=== PATIENT | female | born 1945 | race Caucasian/White ===

== ENCOUNTER 2020-09-23 15:54 | Inpatient (IN) | payer MEDICARE ==
[2020-09-23] MEDS ORDERED: HEPARIN SODIUM 1,000 UN/ML (10ML VL) IV PRN (16:20)
--- NOTE | 2020-09-23 16:22 | ED ---
General Adult HPI - General Chief complaint: Extremity Problem,Nontraumatic Stated complaint: DVT, Vascular Consult Time Seen by Provider: 09/23/20 15:57 Source: patient, EMS Mode of arrival: EMS Limitations: no limitations - History of Present Illness Initial comments: Dictation was produced using [employer] English dictation software. please excuse any gramm atical, word or spelling errors. Chief Complaint: 75-year-old female transferred from [facility] emergency Department for left lower richard of any DVT History of Present Illness: 5-year-old female she has no history of PE or DVTs. Over the last 4 days she developed worsening left lower extremity pain and swelling. She received an ultrasound and CT angios of the chest at [facility]. She was negative for pulmonary embolus however did have extensive DVT formation in the left lower extremity. As a constitutional symptoms. Denies any dysuria. No shortness of breath, no abdominal pain. The ROS documented in this emergency department record has been reviewed and confirmed by me. Those systems with pertinent positive or negative responses have been documented in the HPI. All other systems are other negative and/or noncontributory. PHYSICAL EXAM: General Impression: Alert and oriented x3, not in acute distress HEENT: Normocephalic atraumatic, extra-ocular movements intact, pupils equal and reactive to light bilaterally, mucous membranes moist. Cardiovascular: Heart regular rate and rhythm Chest: Able to complete full sentences, no retractions, no tachypnea Abdomen: abdomen soft, non-tender, non-distended, no organomegaly Musculoskeletal: Pulses present and equal in all extremities, no peripheral edema Motor: no focal deficits noted, swollen left extremity Neurological: CN II-XII grossly intact, no focal motor or sensory deficits noted Skin: Intact with no visualized rashes Psych: Normal affect and mood ED course: 75-year-old female presents with extensive DVT formation with fluctuating. She was evaluated for PE and CT angios the chest was negative. Vital signs upon arrival shows temperature 101.9. Rest of vital signs within acceptable limits. Patient does not have any localizing symptoms to explain patient's pyrexia. Blood cultures and urine studies were obtained. Repeat labs ordered. His examination is benign. Patient is well-appearing at the bedside showing no significant changes. Patient to be admitted with consultation to vascular surgery. - Related Data Allergies Allergy/AdvReac Type Severity Reaction Status Date / Time No Known Allergies Allergy Verified 09/23/20 16:34 Review of Systems ROS Statement: Those systems with pertinent positive or pertinent negative responses have been documented in the HPI. ROS Other: All systems not noted in ROS Statement are negative. Past Medical History Past Medical History: Hypertension History of Any Multi-Drug Resistant Organisms: None Reported Past Surgical History: Orthopedic Surgery, Tubal Ligation Past Psychological History: No Psychological Hx Reported Smoking Status: Former smoker Past Alcohol Use History: None Reported Past Drug Use History: None Reported General Exam Limitations: no limitations Course Vital Signs 09/23/20 15:56 Temperature 101.9 F H Pulse Rate 86 Respiratory 18 Rate Blood Pressure 146/68 O2 Sat by Pulse 100 Oximetry Medical Decision Making - Lab Data Result diagrams: 09/23/20 16:31 09/23/20 16:31 Lab Results 09/23/20 09/23/20 09/23/20 Range/Units 16:31 16:31 16:31 WBC 15.4 H (3.8-10.6) k/uL RBC 4.07 (3.80-5.40) m/uL Hgb 13.0 (11.4-16.0) gm/dL Hct 37.6 (34.0-46.0) % MCV 92.4 (80.0-100.0) fL MCH 32.1 (25.0-35.0) pg MCHC 34.7 (31.0-37.0) g/dL RDW 13.4 (11.5-15.5) % Plt Count 185 (150-450) k/uL MPV 7.9 Neutrophils % 77 % Lymphocytes % 13 % Monocytes % 8 % Eosinophils % 1 % Basophils % 0 % Neutrophils # 11.9 H (1.3-7.7) k/uL Lymphocytes # 2.0 (1.0-4.8) k/uL Monocytes # 1.2 H (0-1.0) k/uL Eosinophils # 0.1 (0-0.7) k/uL Basophils # 0.1 (0-0.2) k/uL Sodium 138 (137-145) mmol/L Potassium 4.0 (3.5-5.1) mmol/L Chloride 101 (98-107) mmol/L Carbon Dioxide 27 (22-30) mmol/L Anion Gap 10 mmol/L BUN 20 H (7-17) mg/dL Creatinine 0.52 (0.52-1.04) mg/dL Est GFR (CKD-EPI)AfAm >90 (>60 ml/min/1.73 sqM) Est GFR (CKD-EPI)NonAf >90 (>60 ml/min/1.73 sqM) Glucose 125 H (74-99) mg/dL Plasma Lactic Acid Tru (0.7-2.0) mmol/L Calcium 9.4 (8.4-10.2) mg/dL Urine Color Yellow Urine Appearance Clear (Clear) Urine pH 6.5 (5.0-8.0) Ur Specific [place] >1.050 H (1.001-1.035) Urine Protein 1+ H (Negative) Urine Glucose (UA) Negative (Negative) Urine Ketones Negative (Negative) Urine Blood Moderate H (Negative) Urine Nitrite Negative (Negative) Urine Bilirubin Negative (Negative) Urine Urobilinogen 4.0 (<2.0) mg/dL Ur Leukocyte Esterase Negative (Negative) Urine RBC 17 H (0-5) /hpf Urine WBC 3 (0-5) /hpf Ur Squamous Epith Cells 4 (0-4) /hpf Urine Bacteria Rare H (None) /hpf Urine Mucus Rare H (None) /hpf 09/23/20 Range/Units 16:31 WBC (3.8-10.6) k/uL RBC (3.80-5.40) m/uL Hgb (11.4-16.0) gm/dL Hct (34.0-46.0) % MCV (80.0-100.0) fL MCH (25.0-35.0) pg MCHC (31.0-37.0) g/dL RDW (11.5-15.5) % Plt Count (150-450) k/uL MPV Neutrophils % % Lymphocytes % % Monocytes % % Eosinophils % % Basophils % % Neutrophils # (1.3-7.7) k/uL Lymphocytes # (1.0-4.8) k/uL Monocytes # (0-1.0) k/uL Eosinophils # (0-0.7) k/uL Basophils # (0-0.2) k/uL Sodium (137-145) mmol/L Potassium (3.5-5.1) mmol/L Chloride (98-107) mmol/L Carbon Dioxide (22-30) mmol/L Anion Gap mmol/L BUN (7-17) mg/dL Creatinine (0.52-1.04) mg/dL Est GFR (CKD-EPI)AfAm (>60 ml/min/1.73 sqM) Est GFR (CKD-EPI)NonAf (>60 ml/min/1.73 sqM) Glucose (74-99) mg/dL Plasma Lactic Acid Tru 1.0 (0.7-2.0) mmol/L Calcium (8.4-10.2) mg/dL Urine Color Urine Appearance (Clear) Urine pH (5.0-8.0) Ur Specific [place] (1.001-1.035) Urine Protein (Negative) Urine Glucose (UA) (Negative) Urine Ketones (Negative) Urine Blood (Negative) Urine Nitrite (Negative) Urine Bilirubin (Negative) Urine Urobilinogen (<2.0) mg/dL Ur Leukocyte Esterase (Negative) Urine RBC (0-5) /hpf Urine WBC (0-5) /hpf Ur Squamous Epith Cells (0-4) /hpf Urine Bacteria (None) /hpf Urine Mucus (None) /hpf Critical Care Time Critical Care Time: Yes Total Critical Care Time: 33 Disposition Clinical Impression: Deep vein thrombosis (DVT) of upper extremity Disposition: ADMITTED IP TO THIS HOSP Condition: Fair Referrals: Salinas Laboy MD [Primary Care Provider] - 1-2 days
[2020-09-23] MEDS: HEPARIN SOD,PORK IN 0.45% NACL 25,000 UNIT in 0.45% NACL 1 250ML.BAG IV SCH (16:40)
[2020-09-23 16:52] LABS: Basophils # (A) 0.1 k/uL (0-0.2); Basophils % (A) 0 %; Eosinophils # (A) 0.1 k/uL (0-0.7); Eosinophils % (A) 1 %; HCT 37.6 % (34.0-46.0); Lymphocytes % (A) 13 %; MCH 32.1 pg (25.0-35.0); MCHC 34.7 g/dL (31.0-37.0); MCV 92.4 fL (80.0-100.0); Mean Platelet Volume 7.9; Monocytes # (A) 1.2 k/uL (0-1.0); Monocytes % (A) 8 %; Neutrophils # (A) 11.9 k/uL (1.3-7.7); Neutrophils % (A) 77 %; Platelet Count 185 k/uL (150-450); RBC 4.07 m/uL (3.80-5.40); RDW 13.4 % (11.5-15.5); WBC 15.4 k/uL (3.8-10.6)
[2020-09-23 17:00] LABS: Appearance,Urine Clear (Clear); Bacteria,Urine Rare /hpf; Bilirubin,Urine Negative (Negative); Blood,Urine Moderate (Negative); Color,Urine Yellow; Glucose,Urine (UA) Negative (Negative); Ketones,Urine Negative (Negative); Leukocyte Esterase,Urine Negative (Negative); Mucus,Urine Rare /hpf; Nitrite,Urine Negative (Negative); PH, Urine 6.5 (5.0-8.0); Protein,Urine 1+ (Negative); RBC,Urine 17 /hpf (0-5); Squamous Epithelial Cell,Urine 4 /hpf (0-4); WBC,Urine 3 /hpf (0-5)
[2020-09-23 17:01] LABS: Specific Gravity,Urine >1.050 (1.001-1.035)
[2020-09-23 17:15] LABS: African American GFR (CKD) >90 (>60 ml/min/1.73 sqM); Anion Gap 10 mmol/L; Blood Urea Nitrogen 20 mg/dL (7-17); Calcium 9.4 mg/dL (8.4-10.2); Carbon Dioxide 27 mmol/L (22-30); Chloride 101 mmol/L (98-107); Glucose 125 mg/dL (74-99); Non-African American GFR(CKD) >90 (>60 ml/min/1.73 sqM); Sodium 138 mmol/L (137-145)
[2020-09-23] MEDS ORDERED: NALOXONE 0.4 MG/ML 1 ML VIAL IV PRN (17:39)
[2020-09-23] MEDS ORDERED: ACETAMINOPHEN TAB 325 MG TAB PO PRN (17:39)
[2020-09-23] MEDS ORDERED: SODIUM CHLORIDE 0.9% 1,000 ML IV SCH (17:45)
[2020-09-23 17:47] LABS: Prothrombin Time 10.8 sec (9.0-12.0)
[2020-09-23 18:17] LABS: Partial Thromboplastin Time 121.2 sec (22.0-30.0)
--- NOTE | 2020-09-23 21:15 | P.HPIM ---
History of Present Illness H&P Date: 09/23/20 The patient is a 75-year-old female with a PMH of hypertension who was sent in to the emergency room as a transfer from [facility] where she presented earlier today with left lower extremity swelling. Patient reports that her symptoms started 4-5 days ago, where she initially noticed left groin pain. She initially did not think much of it and the pain gradually worsened along with worsening swelling and pain of the left lower extremity. She also then had occasional chills at home. The patient denied recent travel or prolonged immobilization. She denied a history of blood clots. Denied using any hormonal therapy. Denied falls or trauma. She denied numbness or tingling of the left leg. Denied headache. Also denied chest pain, shortness of breath, palpitations. Denied urinary complaints. Denied nausea, vomiting, abdominal pain, diarrhea. She underwent an extensive evaluation at [facility] which was all reviewed. Lower extremity venous Doppler revealed evidence of a severe DVT of the entire left leg from posterior tibial to the common femoral vein. CT angiogram of the chest revealed no evidence of pulmonary embolism. Laboratory evaluation revealed a hemoglobin of 12.2, platelets 176, WBC count 13.7, d-dimer 17.4, INR 1.0, PT 10.1, PTT 23.9, sodium 136, potassium 3.9, chloride 102, glucose 138, BUN 36.8, creatinine 0.6, troponin I less than 0.05, and BNP 28. The patient was started on heparin infusion and was transferred for further management including vascular surgery consult. At time of interview, the patient reports that she only has mild left lower extremity pain if she tries to move the leg but has no pain at rest. Review of systems: Pertinent positives and negatives as discussed in HPI, a complete review of systems was performed and all other systems are negative. Physical examination: General: non toxic, no distress, appears at stated age, normal weight Derm: no unusual rashes/lesions no unusual ecchymoses, warm, dry Head: atraumatic, normocephalic, symmetric Eyes: EOMI, no lid lag, anicteric sclera, pupils equal round reactive to light ENT: Nose and ears atraumatic, no thrush, no pharyngeal erythema Neck: No thyromegaly, no cervical lymphadenopathy, trachea midline, supple Mouth: no lip lesion, mucus membranes moist Cardiovascular: S1S2 reg, no murmur, positive posterior tibial pulse bilateral, capillary refill less than 2 seconds Lungs: CTA bilateral, no rhonchi, no rales , no accessory muscle use Abdominal: soft, nontender to palpation, no guarding, no appreciable organomegaly, normal bowel sounds Ext: no gross muscle atrophy, left lower extremity swelling extending to the left hip, warmth and tenderness of the left leg noted with minimal erythema, muscle strength 5 out of 5 in all extremities except left lower extremity due to pain, distal left lower extremity strength 5 out of 5, no contractures Neuro: CN II-XI grossly intact, light touch intact all 4 extremities, finger to nose within normal limits, Psych: Alert, oriented, appropriate affect Assessment/plan Severe left lower extremity DVT -Continue with heparin infusion -Vascular surgery consulted Pyrexia, no clear infectious etiology noted -May be due to significant clot burden -Follow up blood cultures -UA and chest x-ray not consistent with infection Prerenal azotemia -Gentle IV hydration -Monitor BMP DVT prophylaxis -Heparin infusion The patient is admitted with an anticipated less than 2 midnight stay for evaluation of DVT CODE STATUS: Full Code Discussed with: Patient Anticipated discharge date: in am Anticipated discharge place: Home A total of 40 minutes was spent on the care of this complex patient more than 50% of the time was spent in counseling and care coordination. Past Medical History Past Medical History: Hypertension History of Any Multi-Drug Resistant Organisms: None Reported Past Surgical History: Orthopedic Surgery, Tubal Ligation Past Psychological History: No Psychological Hx Reported Smoking Status: Former smoker Past Alcohol Use History: None Reported Past Drug Use History: None Reported Medications and Allergies Home Medications Medication Instructions Recorded Confirmed Type Ascorbic Acid [Vitamin C] 1,000 mg PO DAILY 09/23/20 09/23/20 History Cholecalciferol (Vitamin D3) 125 mcg PO DAILY 09/23/20 09/23/20 History [Vitamin D3 (5000 Iu)] Cyanocobalamin [Vitamin B-12] 500 mcg PO DAILY 09/23/20 09/23/20 History Diltiazem HCl [Diltiazem HCl 24Hr 240 mg PO DAILY 09/23/20 09/23/20 History ER ([place])] Vitamin A 2,400 mcg PO DAILY 09/23/20 09/23/20 History Allergies Allergy/AdvReac Type Severity Reaction Status Date / Time No Known Allergies Allergy Verified 09/23/20 18:23 Physical Exam Vitals: Vital Signs Temp Pulse Pulse Resp BP BP Pulse Ox 09/23/20 19:25 99.5 F 80 20 126/74 96 09/23/20 18:19 100.1 F H 104/58 09/23/20 18:14 86 18 98 09/23/20 15:56 101.9 F H 86 18 146/68 100 Intake and Output 09/23/20 09/23/20 09/23/20 06:59 14:59 22:59 Intake Total 25.701 Balance 25.701 Intake: Intake, IV Titration 25.701 Amount Heparin Sod,Pork in 0.45% 25.701 NaCl 25,000 unit In 0.45 % NaCl 1 250ml.bag @ 18 UNITS/KG/HR 15.268 mls/hr IV [id number] Rx#: [id number] Other: Weight 84.822 kg Results CBC & Chem 7: 09/23/20 16:31 09/23/20 16:31 Labs: Abnormal Lab Results - Last 24 Hours (Table) 09/23/20 09/23/20 09/23/20 Range/Units 16:31 16:31 16:31 WBC 15.4 H (3.8-10.6) k/uL Neutrophils # 11.9 H (1.3-7.7) k/uL Monocytes # 1.2 H (0-1.0) k/uL APTT (22.0-30.0) sec BUN 20 H (7-17) mg/dL Glucose 125 H (74-99) mg/dL Ur Specific [place] >1.050 H (1.001-1.035) Urine Protein 1+ H (Negative) Urine Blood Moderate H (Negative) Urine RBC 17 H (0-5) /hpf Urine Bacteria Rare H (None) /hpf Urine Mucus Rare H (None) /hpf 09/23/20 Range/Units 17:30 WBC (3.8-10.6) k/uL Neutrophils # (1.3-7.7) k/uL Monocytes # (0-1.0) k/uL APTT 121.2 H* (22.0-30.0) sec BUN (7-17) mg/dL Glucose (74-99) mg/dL Ur Specific [place] (1.001-1.035) Urine Protein (Negative) Urine Blood (Negative) Urine RBC (0-5) /hpf Urine Bacteria (None) /hpf Urine Mucus (None) /hpf
[2020-09-24] MEDS: DILTIAZEM CD 240 MG CAP.ER.24H PO SCH (08:18)
--- NOTE | 2020-09-24 13:09 | P.GSCN ---
History of Present Illness Consult date: 09/24/20 Reason for Consult: Left lower extremity DVT Requesting physician: Rashi Romero History of present illness: This is a 75-year-old white female with a past medical history of hypertension who presented to her [facility] hospital with complaints of left lower extremity pain and swelling. States that she started with pain in her groin for 5 days ago and then it progressively got worse and went down her left leg. She also noted swelling, no redness. She denies any previous history of DVT, pulmonary embolism, denies any clotting disorders no injury to her left lower extremity, no recent surgery, no recent traveling. Outside report was dictated by the ER physician showing evidence of deep vein thrombosis present, severe DVT noted entire left leg from posterior tibial to common femoral vein. She also underwent a CT angiogram of the chest which showed no evidence of pulmonary embolism. She is complaining that she still has pain down her left lower extremity. She denies any shortness of breath, chest pain, abdominal pain, nausea, vomiting, or fever. Review of Systems A 14 point review of systems was completed all pertinent positives and negatives as stated in the HPI Past Medical History Past Medical History: Hypertension History of Any Multi-Drug Resistant Organisms: None Reported Past Surgical History: Orthopedic Surgery, Tubal Ligation Past Psychological History: No Psychological Hx Reported Smoking Status: Former smoker Past Alcohol Use History: None Reported Past Drug Use History: None Reported Medications and Allergies Home Medications Medication Instructions Recorded Confirmed Type Ascorbic Acid [Vitamin C] 1,000 mg PO DAILY 09/23/20 09/23/20 History Cholecalciferol (Vitamin D3) 125 mcg PO DAILY 09/23/20 09/23/20 History [Vitamin D3 (5000 Iu)] Cyanocobalamin [Vitamin B-12] 500 mcg PO DAILY 09/23/20 09/23/20 History Diltiazem HCl [Diltiazem HCl 24Hr 240 mg PO DAILY 09/23/20 09/23/20 History ER ([place])] Vitamin A 2,400 mcg PO DAILY 09/23/20 09/23/20 History Allergies Allergy/AdvReac Type Severity Reaction Status Date / Time No Known Allergies Allergy Verified 09/23/20 18:23 Surgical - Exam Vital Signs Temp Pulse Resp BP Pulse Ox 101.9 F H 86 18 146/68 100 09/23/20 15:56 09/23/20 15:56 09/23/20 15:56 09/23/20 15:56 09/23/20 15:56 General appearance: The patient is alert, oriented, in no acute distress. Obese. HET: Head is normocephalic and atraumatic. Neck: Supple without lymphadenopathy. Trachea midline. Heart: S1 S2. Regular rate and rhythm. Lungs: Clear to auscultation. Abdomen: Soft, nontender, nondistended. Extremities: Normal skin color and turgor. Lower extremity with edema from thigh down to her foot. No redness noted. She does have some tenderness with palpation of her thigh and calf. She has bilateral palpable femoral and dorsalis pedis pulses. Neurological: No focal deficits. Alert and oriented 3. Results - Labs 09/23/20 16:31 09/23/20 16:31 Abnormal Lab Results - Last 24 Hours (Table) 09/23/20 09/23/20 09/23/20 Range/Units 16:31 16:31 16:31 WBC 15.4 H (3.8-10.6) k/uL Neutrophils # 11.9 H (1.3-7.7) k/uL Monocytes # 1.2 H (0-1.0) k/uL APTT (22.0-30.0) sec BUN 20 H (7-17) mg/dL Glucose 125 H (74-99) mg/dL Ur Specific [place] >1.050 H (1.001-1.035) Urine Protein 1+ H (Negative) Urine Blood Moderate H (Negative) Urine RBC 17 H (0-5) /hpf Urine Bacteria Rare H (None) /hpf Urine Mucus Rare H (None) /hpf 09/23/20 09/24/20 Range/Units 17:30 02:52 WBC (3.8-10.6) k/uL Neutrophils # (1.3-7.7) k/uL Monocytes # (0-1.0) k/uL APTT 121.2 H* 120.7 H* (22.0-30.0) sec BUN (7-17) mg/dL Glucose (74-99) mg/dL Ur Specific [place] (1.001-1.035) Urine Protein (Negative) Urine Blood (Negative) Urine RBC (0-5) /hpf Urine Bacteria (None) /hpf Urine Mucus (None) /hpf Diabetes panel 09/23/20 Range/Units 16:31 Sodium 138 (137-145) mmol/L Potassium 4.0 (3.5-5.1) mmol/L Chloride 101 (98-107) mmol/L Carbon Dioxide 27 (22-30) mmol/L BUN 20 H (7-17) mg/dL Creatinine 0.52 (0.52-1.04) mg/dL Glucose 125 H (74-99) mg/dL Calcium 9.4 (8.4-10.2) mg/dL Calcium panel 09/23/20 Range/Units 16:31 Calcium 9.4 (8.4-10.2) mg/dL Pituitary panel 09/23/20 Range/Units 16:31 Sodium 138 (137-145) mmol/L Potassium 4.0 (3.5-5.1) mmol/L Chloride 101 (98-107) mmol/L Carbon Dioxide 27 (22-30) mmol/L BUN 20 H (7-17) mg/dL Creatinine 0.52 (0.52-1.04) mg/dL Glucose 125 H (74-99) mg/dL Calcium 9.4 (8.4-10.2) mg/dL Adrenal panel 09/23/20 Range/Units 16:31 Sodium 138 (137-145) mmol/L Potassium 4.0 (3.5-5.1) mmol/L Chloride 101 (98-107) mmol/L Carbon Dioxide 27 (22-30) mmol/L BUN 20 H (7-17) mg/dL Creatinine 0.52 (0.52-1.04) mg/dL Glucose 125 H (74-99) mg/dL Calcium 9.4 (8.4-10.2) mg/dL - Imaging Comments: Doppler ultrasound from [facility] reports evidence of deep vein thrombosis present severe DVT noted entire left leg from posterior tibial to the common femoral vein. Assessment and Plan Assessment: 1. Left lower extremity DVT 2. History of hypertension Plan: 1. Continue heparin drip 2. Nothing by mouth 3. Will schedule patient for a left femoral venogram with possible thrombolysis 4. Further recommendations to follow 5. Please get actual report of left lower extremity venous Doppler study from [facility] Thank you for this consultation allowing us to take part in the plan of care of your patient during her hospital stay The impression and plan of care has been dictated as directed. Dr. Pandya I performed a history and examination of this patient, discussed the same with the dictator. I agree with the dictator's note ,documented as a scribe. Any additional findings or plans will be noted.
[2020-09-24] MEDS ORDERED: HEPARIN SODIUM 1,000 UN/ML (10ML VL) ONE (13:28)
[2020-09-24] MEDS ORDERED: LIDOCAINE 1% INJ 10MG/ML (20 ML MDV) ONE (13:28)
[2020-09-24] MEDS ORDERED: LIDOCAINE 1% INJ 10MG/ML (20 ML MDV) SQ ONE (13:37)
--- NOTE | 2020-09-24 13:44 | P.PN ---
Subjective Progress Note Date: 09/24/20 Patient was seen and evaluated this morning. She did not have any concerns. She denies any pain in her left lower extremity. Left lower extremity is significantly swollen compared to the right. Objective - Vital Signs Vital signs: Vital Signs Temp 98.2 F 09/24/20 11:44 Pulse 86 09/24/20 11:44 Resp 16 09/24/20 11:44 BP 135/79 09/24/20 11:44 Pulse Ox 97 09/24/20 11:44 Intake & Output 09/23/20 09/24/20 09/24/20 18:59 06:59 18:59 Intake Total 25.701 114.199 97.331 Output Total 100 Balance 25.701 14.199 97.331 Weight 84.822 kg Intake: Intake, IV Titration 25.701 114.199 97.331 Amount Heparin Sod,Pork in 0.45% 25.701 114.199 97.331 NaCl 25,000 unit In 0.45 % NaCl 1 250ml.bag @ 18 UNITS/KG/HR 15.268 mls/hr IV .[id number] [facility] Rx#: [id number] Oral 0 Output: Urine 100 Other: Voiding Method Bedside Commode # Voids 5 - Exam General: The patient is awake and alert, in no distress Eye: there is normal conjunctiva bilaterally. Neck: The neck is supple, there is no JVD. Cardiovascular: Normal S1-S2, no S3-S4, no murmurs. Respiratory: Lungs clear to auscultation bilaterally Gastrointestinal: Abdomen is soft, nontender Musculoskeletal: There is no pedal edema. Neurological:. Speech is normal. Skin: Skin is warm and dry - Labs CBC & Chem 7: 09/23/20 16:31 09/23/20 16:31 Labs: Abnormal Lab Results - Last 24 Hours (Table) 09/23/20 09/23/20 09/23/20 Range/Units 16:31 16:31 16:31 WBC 15.4 H (3.8-10.6) k/uL Neutrophils # 11.9 H (1.3-7.7) k/uL Monocytes # 1.2 H (0-1.0) k/uL APTT (22.0-30.0) sec BUN 20 H (7-17) mg/dL Glucose 125 H (74-99) mg/dL Ur Specific [place] >1.050 H (1.001-1.035) Urine Protein 1+ H (Negative) Urine Blood Moderate H (Negative) Urine RBC 17 H (0-5) /hpf Urine Bacteria Rare H (None) /hpf Urine Mucus Rare H (None) /hpf 09/23/20 09/24/20 09/24/20 Range/Units 17:30 02:52 11:43 WBC (3.8-10.6) k/uL Neutrophils # (1.3-7.7) k/uL Monocytes # (0-1.0) k/uL APTT 121.2 H* 120.7 H* 60.8 H (22.0-30.0) sec BUN (7-17) mg/dL Glucose (74-99) mg/dL Ur Specific [place] (1.001-1.035) Urine Protein (Negative) Urine Blood (Negative) Urine RBC (0-5) /hpf Urine Bacteria (None) /hpf Urine Mucus (None) /hpf Assessment and Plan Assessment: This is a 75-year-old female with past medical history noted below who presented to an outside emergency room with worsening left lower extremity pain and swelling. Patient was evaluated and transferred to our hospital for further management of her medical problems noted below. 1. Extensive DVT involving the left lower extremity, started on IV heparin drip. Patient was seen and evaluated by vascular surgery. Plan for possible femoral venogram with thrombolysis this afternoon. 2. Essential hypertension, blood pressure within acceptable range Today, I reviewed her medication list and lab work results. CT angiogram of the chest done at outside hospital showed no evidence of pulmonary embolism. We will continue supportive care otherwise. He Works in the morning. PT/OT evaluation.
[2020-09-24] MEDS ORDERED: ALTEPLASE BOLUS 1 MG/1 ML SYRINGE IV STA (14:06)
[2020-09-24] MEDS ORDERED: ALTEPLASE 10 MG in SODIUM CHLORIDE 0.9% 100 ML IV ONE (14:15)
[2020-09-24] MEDS ORDERED: IOPAMIDOL-250 100ML BTL IV ONE (14:15)
--- NOTE | 2020-09-24 15:25 | P.CNPUL ---
History of Present Illness Consult date: 09/24/20 Requesting physician: Bharti Gaona Reason for consult: DVT Chief complaint: A left lower extremity swelling and pain History of present illness: This is a 75-year-old female, known history of hypertension, nonsmoker, no previous history of DVT or pulmonary embolism, no previous history of ma lignancy. Patient is current on cancer screening including mammography and colon cancer screening/colonoscopy. Patient presented to the ER in [place] with 5 days history of progressive swelling and pain in the left lower extremity. Denies any history of trauma to the leg. Denies any recent surgery. No recent travel. Ultrasound of the leg showed deep vein thromboses. There was evidence of severe DVT involving the entire left leg from the posterior tibial [address] angiogram of the chest showed no evidence of pulmonary embolism. Patient was transferred to our ER, seen by vascular surgery on consultation, patient was maintained on heparin, underwent left femoral venogram with thrombolysis, using EKOS. Postoperatively, patient was sent to the ICU, and I was asked to see her on consultation. Patient denies any specific complaints at present, she is in no distress. No cough no wheezing no shortness of breath and no chest pain. Review of Systems Constitutional: Negative HEENT: Negative. Pulmonary: Negative. Cardiac: Negative. GI: Negative. Genitourinary: Negative Muscular skeletal: As noted in HPI. Skin: Negative. Hematologic: No previous history of DVT or pulmonary embolism Psychiatric: Negative Endocrine: Negative Neurologic: Negative Past Medical History Past Medical History: Hypertension History of Any Multi-Drug Resistant Organisms: None Reported Past Surgical History: Orthopedic Surgery, Tubal Ligation Past Psychological History: No Psychological Hx Reported Smoking Status: Former smoker Past Alcohol Use History: None Reported Past Drug Use History: None Reported Medications and Allergies Home Medications Medication Instructions Recorded Confirmed Type Ascorbic Acid [Vitamin C] 1,000 mg PO DAILY 09/23/20 09/23/20 History Cholecalciferol (Vitamin D3) 125 mcg PO DAILY 09/23/20 09/23/20 History [Vitamin D3 (5000 Iu)] Cyanocobalamin [Vitamin B-12] 500 mcg PO DAILY 09/23/20 09/23/20 History Diltiazem HCl [Diltiazem HCl 24Hr 240 mg PO DAILY 09/23/20 09/23/20 History ER ([place])] Vitamin A 2,400 mcg PO DAILY 09/23/20 09/23/20 History Allergies Allergy/AdvReac Type Severity Reaction Status Date / Time No Known Allergies Allergy Verified 09/23/20 18:23 Physical Exam Vitals: Vital Signs Temp Pulse Pulse Resp BP BP BP 09/24/20 11:44 98.2 F 86 16 135/79 09/24/20 04:35 98.9 F 83 20 165/71 09/23/20 19:25 99.5 F 80 20 126/74 09/23/20 18:19 100.1 F H 104/58 09/23/20 18:14 86 18 09/23/20 15:56 101.9 F H 86 18 146/68 Pulse Ox 09/24/20 11:44 97 09/24/20 04:35 100 09/23/20 19:25 96 09/23/20 18:19 09/23/20 18:14 98 09/23/20 15:56 100 Intake and Output 09/24/20 09/24/20 09/24/20 06:59 14:59 22:59 Intake Total 114.199 97.331 Balance 114.199 97.331 Intake: Intake, IV Titration 114.199 97.331 Amount Heparin Sod,Pork in 0.45% 114.199 97.331 NaCl 25,000 unit In 0.45 % NaCl 1 250ml.bag @ 18 UNITS/KG/HR 15.268 mls/hr IV .[id number] [facility] Rx#: [id number] Oral 0 Other: Voiding Method Bedside Commode # Voids 5 Physical Exam: Revealed 75-year-old female very pleasant in no distress, on room air. Head: Atraumatic, normocephalic. HEENT:[Neck is supple.] [No neck masses.] [No thyromegaly.] [No JVD.] PERRLA, EOMI, nonicteric, Chest: [Clear throughout, no crackles, no rhonchi, no wheezes.] Symmetrical chest expansion. Cardiac Exam: [Normal S1 and S2, no S3 gallop, no murmur.] Abdomen: [Soft, nontender, no megaly, no rebound, no guarding, normal bowel sounds.] Extremities: Left Lower extremity with edema from thigh down to her foot. No redness noted. She does have some tenderness with palpation of her thigh and calf. She has bilateral palpable femoral and dorsalis pedis pulses. Neurological Exam: [No focal neurologic deficit.] Alert oriented 3. Psychiatric: Normal mood affect and normal mental status examination. Skin: No rashes. Musculoskeletal no deformities noted limitation range of motion Results - Laboratory Findings CBC and BMP: 09/23/20 16:31 09/23/20 16:31 PT/INR, D-dimer PT 10.8 sec (9.0-12.0) 09/23/20 17:30 INR 1.0 (<1.2) 09/23/20 17:30 Abnormal lab findings: Abnormal Labs 09/23/20 09/23/20 09/23/20 16:31 16:31 16:31 WBC 15.4 H Neutrophils # 11.9 H Monocytes # 1.2 H APTT BUN 20 H Glucose 125 H Ur Specific [place] >1.050 H Urine Protein 1+ H Urine Blood Moderate H Urine RBC 17 H Urine Bacteria Rare H Urine Mucus Rare H 09/23/20 09/24/20 09/24/20 17:30 02:52 11:43 WBC Neutrophils # Monocytes # APTT 121.2 H* 120.7 H* 60.8 H BUN Glucose Ur Specific [place] Urine Protein Urine Blood Urine RBC Urine Bacteria Urine Mucus Assessment and Plan Assessment: Impression: Acute extensive DVT of the left lower extremity, unprovoked. History of hypertension. Status post left femoral venogram with thrombolysis. History of coVID 19 infection back in June of 2020. Recommendation: Continue present supportive care measures. Continue heparin and TPA. Resume home meds. Consider CT of the abdomen and pelvis, rule out underlying abdominal malignancy. Continue to monitor in the ICU for the next 24 hours Transition to oral anticoagulation therapy in the next 24 hours. We'll continue to follow. Time with Patient: Greater than 30
[2020-09-24] MEDS: HEPARIN SOD,PORK IN 0.45% NACL 25,000 UNIT in 0.45% NACL 1 250ML.BAG IV SCH (18:57)
[2020-09-24] MEDS: SODIUM CHLORIDE 0.9% 1,000 ML IV SCH (18:58)
[2020-09-25 03:59] LABS: Basophils # (A) 0.1 k/uL (0-0.2); Basophils % (A) 0 %; Eosinophils % (A) 0 %; HCT 36.6 % (34.0-46.0); HGB 12.2 gm/dL (11.4-16.0); Lymphocytes # (A) 1.7 k/uL (1.0-4.8); Lymphocytes % (A) 12 %; MCH 31.2 pg (25.0-35.0); MCHC 33.4 g/dL (31.0-37.0); MCV 93.2 fL (80.0-100.0); Mean Platelet Volume 8.4; Monocytes % (A) 7 %; Neutrophils % (A) 79 %; Platelet Count 178 k/uL (150-450); RBC 3.93 m/uL (3.80-5.40); RDW 13.4 % (11.5-15.5); WBC 13.9 k/uL (3.8-10.6)
[2020-09-25 04:21] LABS: African American GFR (CKD) >90 (>60 ml/min/1.73 sqM); Anion Gap 9 mmol/L; Blood Urea Nitrogen 12 mg/dL (7-17); Calcium 8.6 mg/dL (8.4-10.2); Carbon Dioxide 23 mmol/L (22-30); Chloride 105 mmol/L (98-107); Glucose 101 mg/dL (74-99); Non-African American GFR(CKD) >90 (>60 ml/min/1.73 sqM); Sodium 137 mmol/L (137-145)
[2020-09-25] MEDS ORDERED: SODIUM CHLORIDE 0.9% 500 ML 500 ML IV SCH (05:15)
[2020-09-25] MEDS: SODIUM CHLORIDE 0.9% 1,000 ML IV SCH (06:23)
[2020-09-25] MEDS: DILTIAZEM CD 240 MG CAP.ER.24H PO SCH (08:28)
--- NOTE | 2020-09-25 08:48 | IR ---
EXAMINATION TYPE: IR transcath embolizat therapy DATE OF EXAM: 09/24/2020 CLINICAL HISTORY: Left leg thrombosis TECHNIQUE: Fluoroscopy. COMPARISON: None. FINDINGS: Fluoroscopic guidance was provided during procedure. A total of 3.1 minutes of fluoroscop ic time was utilized during the procedure and 401 total images acquired. IMPRESSION: As Above.
--- NOTE | 2020-09-25 08:56 | P.PN ---
Subjective Progress Note Date: 09/25/20 Principal diagnosis: Left lower extremity DVT The patient is seen and examined lying in bed in the ICU. Yesterday she underwent left lower extremity venogram with thromboliasis. She is currently on heparin and TPA. She denies any shortness of breath, chest pain, abdominal andrews n, nausea or vomiting. She's been afebrile. She states she is doing well and had no acute changes through the night. No significant pain in the left lower extremity. Objective - Vital Signs Vital signs: Vital Signs Temp 100.7 F H 09/25/20 04:00 Pulse 73 09/25/20 07:00 Resp 19 09/25/20 08:00 BP 122/50 09/25/20 07:00 Pulse Ox 94 L 09/25/20 07:00 Intake & Output 09/24/20 09/25/20 09/25/20 18:59 06:59 18:59 Intake Total 985.725 0941 105 Output Total 75 Balance 489.906 5557 105 Weight 91.6 kg Intake: IV 280 910 70 Sodium Chloride 0.9% 1, 280 910 70 000 ml @ 70 mls/hr IV . [id number] [facility] Rx#:[id number] Intake, IV Titration 110.100 205 35 Amount Alteplase 10 mg In Sodium 135 Chloride 0.9% 100 ml @ 1 MG/HR 10 mls/hr IV .Q10H [facility] Rx#:[id number] Heparin Sod,Pork in 0.45% 110.100 NaCl 25,000 unit In 0.45 % NaCl 1 250ml.bag @ 5 mls/hr IV .Q24H [facility] Rx#: [id number] Sodium Chloride 0.9% 500 70 35 ml 500 ml @ 35 mls/hr IV .[id number] [facility] Rx#: [id number] Oral 0 Tube Feeding 0 0 Blood Product 0 Output: Urine 75 Other: Voiding Method Bedside Commode Bedside Commode Bedside Commode # Voids 1 1 - Exam General appearance: The patient is alert, oriented, appears in no acute distress . HET: Head is normocephalic and atraumatic. Neck: Supple without lymphadenopathy. Trachea midline. Heart: S1 S2. Regular rate and rhythm. Lungs: Clear to auscultation. Abdomen: Soft, nontender, nondistended. Extremities: Normal skin color and turgor. Left lower extremity with Job wrap around knee. Palpable femoral and dorsalis pedis pulses. Neurological: No focal deficits. Alert and oriented 3. - Labs CBC & Chem 7: 09/25/20 03:13 09/25/20 03:13 Labs: Abnormal Lab Results - Last 24 Hours (Table) 09/24/20 09/24/20 09/25/20 Range/Units 11:43 21:35 03:13 WBC 13.9 H (3.8-10.6) k/uL Neutrophils # 11.0 H (1.3-7.7) k/uL APTT 60.8 H (22.0-30.0) sec Fibrinogen 763 H (200-500) mg/dL Creatinine (0.52-1.04) mg/dL Glucose (74-99) mg/dL 09/25/20 09/25/20 Range/Units 03:13 03:13 WBC (3.8-10.6) k/uL Neutrophils # (1.3-7.7) k/uL APTT (22.0-30.0) sec Fibrinogen 679 H (200-500) mg/dL Creatinine 0.48 L (0.52-1.04) mg/dL Glucose 101 H (74-99) mg/dL Microbiology - Last 24 Hours (Table) 09/23/20 21:25 Blood Culture - Preliminary Blood No Growth after 24 hours Assessment and Plan Assessment: 1. Dense of left lower extremity DVT 2. Patient is status post left lower extremity venogram and thrombolysis 3. History of hypertension Plan: 1. Discontinue TPA and Heparin 2. Start Eliquis 10mg BID, script sent to pharmacy to check for coverage 3. Catheter discontinued, please pull sheath 4. May ambulate after two hours 5. Regular diet 6. Patient may be transferred to medical floor Thank you for this consultation, we will continue to follow The impression and plan of care has been dictated as directed. I performed a history and examination of this patient, discussed the same with the dictator. I agree with the dictator's note ,documented as a scribe. Any additional findings or plans will be noted.
--- NOTE | 2020-09-25 12:15 | P.PN ---
Subjective Progress Note Date: 09/25/20 Principal diagnosis: Acute left lower extremity deep vein thrombosis This is a 75-year-old female, known history of hypertension, nonsmoker, no previous history of DVT or pulmonary embolism, no previous history of malignancy. Patient is current on cancer screening including mammography and colon cancer screening/colonoscopy. Patient presented to the ER in [place] with 5 days history of progressive swelling and pain in the left lower extremity. Denies any history of trauma to the leg. Denies any recent surgery. No recent travel. Ultrasound of the leg showed deep vein thromboses. There was evidence of severe DVT involving the entire left leg from the posterior tibi al [address] angiogram of the chest showed no evidence of pulmonary embolism. Patient was transferred to our ER, seen by vascular surgery on consultation, patient was maintained on heparin, underwent left femoral venogram with thrombolysis, using EKOS. Postoperatively, patient was sent to the ICU, and I was asked to see her on consultation. Patient denies any specific complaints at present, she is in no distress. No cough no wheezing no shortness of breath and no chest pain. Reevaluated today on 09/25/2020, patient had left lower extremity venogram and thrombolysis yesterday. Presently on heparin, denies any shortness of breath, no issues overnight, overall the patient is doing great, and I believe the patient could be transitioned possibly today to oral anticoagulations therapy either Eliquis on Xarelto. WBC count is 15.9 hemoglobin is 12.2 PTT is 25.4, fibrinogen is 711 electrolytes are normal renal profile is normal Objective - Vital Signs Vital signs: Vital Signs Temp 97.9 F 09/25/20 08:00 Pulse 93 09/25/20 12:00 Resp 17 09/25/20 12:00 BP 150/95 09/25/20 12:00 Pulse Ox 97 09/25/20 12:00 Intake & Output 09/24/20 09/25/20 09/25/20 18:59 06:59 18:59 Intake Total 382.347 9247 605 Output Total 75 600 Balance 153.935 6864 5 Weight 91.6 kg Intake: IV 280 910 420 Sodium Chloride 0.9% 1, 280 910 420 000 ml @ 70 mls/hr IV . [id number] [facility] Rx#:[id number] Intake, IV Titration 110.100 205 35 Amount Alteplase 10 mg In Sodium 135 Chloride 0.9% 100 ml @ 1 MG/HR 10 mls/hr IV .Q10H [facility] Rx#:[id number] Heparin Sod,Pork in 0.45% 110.100 NaCl 25,000 unit In 0.45 % NaCl 1 250ml.bag @ 5 mls/hr IV .Q24H [facility] Rx#: [id number] Sodium Chloride 0.9% 500 70 35 ml 500 ml @ 35 mls/hr IV .[id number] [facility] Rx#: [id number] Oral 0 150 Tube Feeding 0 0 Blood Product 0 Output: Urine 75 600 Other: Voiding Method Bedside Commode Bedside Commode Bedside Commode # Voids 1 1 - Exam Physical Exam: Revealed 75-year-old female very pleasant in no distress, on room air. Head: Atraumatic, normocephalic. HEENT:[Neck is supple.] [No neck masses.] [No thyromegaly.] [No JVD.] PERRLA, EOMI, nonicteric, Chest: [Clear throughout, no crackles, no rhonchi, no wheezes.] Symmetrical chest expansion. Cardiac Exam: [Normal S1 and S2, no S3 gallop, no murmur.] Abdomen: [Soft, nontender, no megaly, no rebound, no guarding, normal bowel sounds.] Extremities: Left Lower extremity is wrapped with Job wraps, pulses are palpable. Neurological Exam: [No focal neurologic deficit.] Alert oriented 3. Psychiatric: Normal mood affect and normal mental status examination. Skin: No rashes. Musculoskeletal no deformities noted limitation range of motion - Labs CBC & Chem 7: 09/25/20 03:13 09/25/20 03:13 Labs: Abnormal Lab Results - Last 24 Hours (Table) 09/24/20 09/24/20 09/25/20 Range/Units 11:43 21:35 03:13 WBC 13.9 H (3.8-10.6) k/uL Neutrophils # 11.0 H (1.3-7.7) k/uL APTT 60.8 H (22.0-30.0) sec Fibrinogen 763 H (200-500) mg/dL Creatinine (0.52-1.04) mg/dL Glucose (74-99) mg/dL 09/25/20 09/25/20 09/25/20 Range/Units 03:13 03:13 08:32 WBC (3.8-10.6) k/uL Neutrophils # (1.3-7.7) k/uL APTT (22.0-30.0) sec Fibrinogen 679 H 711 H (200-500) mg/dL Creatinine 0.48 L (0.52-1.04) mg/dL Glucose 101 H (74-99) mg/dL Microbiology - Last 24 Hours (Table) 09/23/20 21:25 Blood Culture - Preliminary Blood No Growth after 24 hours Assessment and Plan Assessment: Impression: Acute extensive DVT of the left lower extremity, unprovoked. History of hypertension. Status post left femoral venogram with thrombolysis. History of coVID 19 infection back in June of 2020. Recommendation: Continue present supportive care measures. Transition to Eliquis. Resume home meds. Consider CT of the abdomen and pelvis, rule out underlying abdominal malignancy. Transfer to a regular medical floor. And consider discharge planning in the ne xt 24 hours. We'll continue to follow. Time with Patient: Less than 30
[2020-09-25] MEDS: APIXABAN 5 MG TAB PO SCH ×2 (12:28→20:00)
--- NOTE | 2020-09-25 13:19 | P.PN ---
Subjective Progress Note Date: 09/25/20 Patient is doing fairly well today. She is laying flat in bed. She is currently getting TPA and IV heparin. She does not have any complaint this morning. No acute events overnight reported by nursing staff. Objective - Vital Signs Vital signs: Vital Signs Temp 97.9 F 09/25/20 08:00 Pulse 93 09/25/20 12:00 Resp 17 09/25/20 12:00 BP 150/95 09/25/20 12:00 Pulse Ox 97 09/25/20 12:00 Intake & Output 09/24/20 09/25/20 09/25/20 18:59 06:59 18:59 Intake Total 108.743 2208 605 Output Total 75 600 Balance 683.585 7310 5 Weight 91.6 kg Intake: IV 280 910 420 Sodium Chloride 0.9% 1, 280 910 420 000 ml @ 70 mls/hr IV . [id number] [facility] Rx#:[id number] Intake, IV Titration 110.100 205 35 Amount Alteplase 10 mg In Sodium 135 Chloride 0.9% 100 ml @ 1 MG/HR 10 mls/hr IV .Q10H [facility] Rx#:[id number] Heparin Sod,Pork in 0.45% 110.100 NaCl 25,000 unit In 0.45 % NaCl 1 250ml.bag @ 5 mls/hr IV .Q24H [facility] Rx#: [id number] Sodium Chloride 0.9% 500 70 35 ml 500 ml @ 35 mls/hr IV .[id number] [facility] Rx#: [id number] Oral 0 150 Tube Feeding 0 0 Blood Product 0 Output: Urine 75 600 Other: Voiding Method Bedside Commode Bedside Commode Bedside Commode # Voids 1 1 - Exam General: The patient is awake and alert, in no distress Eye: there is normal conjunctiva bilaterally. Neck: The neck is supple, there is no JVD. Cardiovascular: Normal S1-S2, no S3-S4, no murmurs. Respiratory: Lungs clear to auscultation bilaterally Gastrointestinal: Abdomen is soft, nontender Musculoskeletal: There is no pedal edema. Left leg significantly swollen compared to the right Neurological:. Speech is normal. Skin: Skin is warm and dry - Labs CBC & Chem 7: 09/25/20 03:13 09/25/20 03:13 Labs: Abnormal Lab Results - Last 24 Hours (Table) 09/24/20 09/25/20 09/25/20 Range/Units 21:35 03:13 03:13 WBC 13.9 H (3.8-10.6) k/uL Neutrophils # 11.0 H (1.3-7.7) k/uL Fibrinogen 763 H (200-500) mg/dL Creatinine 0.48 L (0.52-1.04) mg/dL Glucose 101 H (74-99) mg/dL 09/25/20 09/25/20 Range/Units 03:13 08:32 WBC (3.8-10.6) k/uL Neutrophils # (1.3-7.7) k/uL Fibrinogen 679 H 711 H (200-500) mg/dL Creatinine (0.52-1.04) mg/dL Glucose (74-99) mg/dL Microbiology - Last 24 Hours (Table) 09/23/20 21:25 Blood Culture - Preliminary Blood No Growth after 24 hours Assessment and Plan Assessment: This is a 75-year-old female with past medical history noted below who presented to an outside emergency room with worsening left lower extremity pain and swelling. Patient was evaluated and transferred to our hospital for further management of her medical problems noted below. 1. Extensive DVT involving the left lower extremity, started on IV heparin drip. Patient was seen and evaluated by vascular surgery. She underwent left lower extremity venogram with thrombolysis. Postoperative care per vascular surgery. 2. Essential hypertension, blood pressure within acceptable range Today, I reviewed her medication list and lab work results. Mild leukocytosis is probably reactive. CT angiogram of the chest done at outside hospital showed no evidence of pulmonary embolism. We will continue supportive care otherwise. He Works in the morning. PT/OT evaluation.
[2020-09-25] MEDS: HEPARIN SOD,PORK IN 0.45% NACL 25,000 UNIT in 0.45% NACL 1 250ML.BAG IV SCH (21:35)
[2020-09-26 03:39] VITALS: TEMP 98.5
[2020-09-26 08:08] LABS: Basophils % (A) 0 %; Eosinophils % (A) 0 %; HCT 36.7 % (34.0-46.0); HGB 11.9 gm/dL (11.4-16.0); Lymphocytes % (A) 18 %; MCH 30.4 pg (25.0-35.0); MCHC 32.4 g/dL (31.0-37.0); MCV 93.7 fL (80.0-100.0); Mean Platelet Volume 7.7; Monocytes # (A) 0.6 k/uL (0-1.0); Monocytes % (A) 5 %; Neutrophils # (A) 8.2 k/uL (1.3-7.7); Neutrophils % (A) 74 %; Platelet Count 215 k/uL (150-450); RBC 3.91 m/uL (3.80-5.40); RDW 13.9 % (11.5-15.5); WBC 11.1 k/uL (3.8-10.6)
[2020-09-26 08:17] LABS: African American GFR (CKD) >90 (>60 ml/min/1.73 sqM); Anion Gap 5 mmol/L; Blood Urea Nitrogen 14 mg/dL (7-17); Calcium 8.7 mg/dL (8.4-10.2); Carbon Dioxide 27 mmol/L (22-30); Chloride 105 mmol/L (98-107); Glucose 98 mg/dL (74-99); Non-African American GFR(CKD) >90 (>60 ml/min/1.73 sqM); Potassium 4.1 mmol/L (3.5-5.1); Sodium 137 mmol/L (137-145)
[2020-09-26] MEDS: DILTIAZEM CD 240 MG CAP.ER.24H PO SCH (09:32)
[2020-09-26] MEDS: APIXABAN 5 MG TAB PO SCH (09:32)
[2020-09-26 10:54] VITALS: BP 125/77; PULSE 89; RESP 16
--- NOTE | 2020-09-26 13:05 | P.PN ---
Subjective Progress Note Date: 09/26/20 Principal diagnosis: Acute left lower extremity DVT This is a 75-year-old female, known history of hypertension, nonsmoker, no previous history of DVT or pulmonary embolism, no previous history of malignancy. Patient is current on cancer screening including mammography and colon cancer screening/colonoscopy. Patient presented to the ER in [place] with 5 days history of progressive swelling and pain in the left lower extremity. Denies any history of trauma to the leg. Denies any recent surgery. No recent travel. Ultrasound of the leg showed deep vein thromboses. There was evidence of severe DVT involving the entire left leg from the posterior tibial [address] angiogram of the chest showed no evidence of pulmonary embolism. Patient was transferred to our ER, seen by vascular surgery on consultation, patient was maintained on heparin, underwent left femoral venogram with thrombolysis, using EKOS. Postoperatively, patient was sent to the ICU, and I was asked to see her on consultation. Patient denies any specific complaints at present, she is in no distress. No cough no wheezing no shortness of breath and no chest pain. Reevaluated today on 09/25/2020, patient had left lower extremity venogram and thrombolysis yesterday. Presently on heparin, denies any shortness of breath, no issues overnight, overall the patient is doing great, and I believe the patient could be transitioned possibly today to oral anticoagulations therapy either Eliquis on Xarelto. WBC count is 15.9 hemoglobin is 12.2 PTT is 25.4, fibrinogen is 711 electrolytes are normal renal profile is normal The patient is seen today 09/26/2020 in follow-up on the selective care unit. She is status post TPA infusion for a left lower extremity DVT. She has been transitioned to Eliquis. She denies any worsening left lower extremity pain. Still slightly more edematous than the right leg. No excessive warmth to touch. Pulses present. White count 11.1. Hemoglobin 11.9. Sodium 137. Potassium 4.1. Creatinine 0.49. No chest pain. No shortness of breath. Maintaining O2 saturations in the mid 90s on room air. Afebrile. Hemodynamically stable. Objective - Vital Signs Vital signs: Vital Signs Temp 98.5 F 09/26/20 10:53 Pulse 89 09/26/20 10:53 Resp 16 09/26/20 10:53 BP 125/77 09/26/20 10:53 Pulse Ox 96 09/26/20 10:53 Intake & Output 09/25/20 09/26/20 09/26/20 18:59 06:59 18:59 Intake Total 1125 315 240 Output Total 700 300 Balance 425 15 240 Weight 87.5 kg Intake: IV 490 0 Sodium Chloride 0.9% 1, 490 0 000 ml @ 70 mls/hr IV . [id number] [facility] Rx#:[id number] Intake, IV Titration 35 Amount Sodium Chloride 0.9% 500 35 ml 500 ml @ 35 mls/hr IV .[id number] [facility] Rx#: [id number] Oral 600 315 240 Tube Feeding 0 Output: Urine 700 300 Other: Voiding Method Bedside Commode Bedside Commode Bedside Commode External Catheter External Catheter # Voids 1 - Exam GENERAL EXAM: Alert, pleasant 75-year-old female patient, on room air, comfortable in no apparent distress. HEAD: Normocephalic. EYES: Normal reaction of pupils, equal size. NOSE: Clear with pink turbinates. THROAT: No erythema or exudates. NECK: No masses, no JVD. CHEST: No chest wall deformity. LUNGS: Equal air entry with no crackles, wheeze, rhonchi or dullness. CVS: S1 and S2 normal with no audible murmur, regular rhythm. ABDOMEN: No hepatosplenomegaly, normal bowel sounds, no guarding or rigidity. SPINE: No scoliosis or deformity SKIN: No rashes CENTRAL NERVOUS SYSTEM: No focal deficits, tone is normal in all 4 extremities. EXTREMITIES: There is trace peripheral edema the left lower extremity. No clubbing, no cyanosis. Peripheral pulses are intact. - Labs CBC & Chem 7: 09/26/20 07:13 09/26/20 07:13 Labs: Abnormal Lab Results - Last 24 Hours (Table) 09/26/20 09/26/20 Range/Units 07:13 07:13 WBC 11.1 H (3.8-10.6) k/uL Neutrophils # 8.2 H (1.3-7.7) k/uL Creatinine 0.49 L (0.52-1.04) mg/dL Microbiology - Last 24 Hours (Table) 09/23/20 21:25 Blood Culture - Preliminary Blood No Growth after 48 hours Assessment and Plan Assessment: 1 Acute extensive DVT of the left lower extremity, unprovoked. Status post left femoral venogram with thrombolysis 2 Hypertension 3 History of CoVID 19 infection in June 2020 4 Obesity Plan: The patient was seen and evaluated by Dr. Ena Herr for discharge from the pulmonary standpoint Recommend probable lifelong anticoagulation with Juni Spann, the cosigning physician, performed a history & physical examination of the patient. Lungs sounds are clear. Maintaining good O2 saturations in the 90s on room air. I discussed the assessment and plan of care with my nurse practitioner, Sonia Husain. I attest to the above note as dictated by her.
--- NOTE | 2020-09-26 13:39 | P.DS ---
Providers Date of admission: 09/24/20 15:20 Expected date of discharge: 09/26/20 Attending physician: Rashi Romero MD Consults: 09/23/20 17:36 Consult Physician Routine Consulting Provider: Damien Posadas Consult Reason/Comments: DVT Do you want consulting provider notified?: Yes 09/24/20 14:27 Consult Physician Urgent Consulting Provider: Trenton Sutherland Consult Reason/Comments: ICU MANAGEMENT Do you want consulting provider notified?: Yes Primary care physician: [facility] Course: This is a 75-year-old female with past medical history noted below who presented to an outside emergency room with worsening left lower extremity pain and swelling. Patient was evaluated and transferred to our hospital for further management of her medical problems noted below. 1. Extensive DVT involving the left lower extremity, started on IV heparin drip. Patient was seen and evaluated by vascular surgery. She underwent left lower extremity venogram with thrombolysis. She did well postoperatively. Anticoagulation transition to oral Eliquis. 2. Essential hypertension, blood pressure within acceptable range Patient was seen, evaluated, and examined on the day of discharge. She was able to get up and walk a few steps with no difficulty. She has a walker at home. She was advised on how to take Eliquis per package instructions. She will follow-up with her PCP and vascular surgery as directed. Time spent approximately 35 minutes Patient Condition at Discharge: Fair Plan - Discharge Summary New Discharge Prescriptions: New Apixaban [Eliquis Starter Pack (for VTE)] 0 mg PO DIRECTED 30 Days #1 pack Continue Vitamin A 2,400 mcg PO DAILY Cholecalciferol (Vitamin D3) [Vitamin D3 (5000 Iu)] 125 mcg PO DAILY Diltiazem HCl [Diltiazem HCl 24Hr ER (LA)] 240 mg PO DAILY Cyanocobalamin [Vitamin B-12] 500 mcg PO DAILY Ascorbic Acid [Vitamin C] 1,000 mg PO DAILY Discharge Medication List Ascorbic Acid [Vitamin C] 1,000 mg PO DAILY 09/23/20 [History] Cholecalciferol (Vitamin D3) [Vitamin D3 (5000 Iu)] 125 mcg PO DAILY 09/23/20 [History] Cyanocobalamin [Vitamin B-12] 500 mcg PO DAILY 09/23/20 [History] Diltiazem HCl [Diltiazem HCl 24Hr ER (LA)] 240 mg PO DAILY 09/23/20 [History] Vitamin A 2,400 mcg PO DAILY 09/23/20 [History] Apixaban [Eliquis Starter Pack (for VTE)] 0 mg PO DIRECTED 30 Days #1 pack 09/25/20 [Rx] Follow up Appointment(s)/Referral(s): Paulo Pandya DO [Doctor of Osteopathic Medicine] - 2 Weeks Salinas Laboy MD [Primary Care Provider] - 1-2 days Discharge Disposition: HOME SELF-CARE
--- NOTE | 2020-09-26 13:55 | P.PN ---
Subjective Progress Note Date: 09/26/20 Principal diagnosis: Left lower extremity DVT She was seen and examined lying in bed. She is status post left lower extremity thromboliasis. She was started on Ahlquist yesterday. States her pain to the left lower extremity has improved. No acute changes through the night, she's been afebrile. Objective - Vital Signs Vital signs: Vital Signs Temp 98.5 F 09/26/20 03:37 Pulse 92 09/26/20 03:37 Resp 19 09/26/20 03:37 BP 115/74 09/26/20 03:37 Pulse Ox 94 L 09/26/20 03:37 Intake & Output 09/25/20 09/26/20 09/26/20 18:59 06:59 18:59 Intake Total 1125 315 Output Total 700 300 Balance 425 15 Weight 87.5 kg Intake: IV 490 0 Sodium Chloride 0.9% 1, 490 0 000 ml @ 70 mls/hr IV . [id number] OTONIEL Rx#:[id number] Intake, IV Titration 35 Amount Sodium Chloride 0.9% 500 35 ml 500 ml @ 35 mls/hr IV .[id number] OTONIEL Rx#: [id number] Oral 600 315 Tube Feeding 0 Output: Urine 700 300 Other: Voiding Method Bedside Commode Bedside Commode External Catheter # Voids 1 - Exam General appearance: The patient is alert, oriented, appears in no acute distress. HET: Head is normocephalic and atraumatic. Neck: Supple without lymphadenopathy. Trachea midline. Heart: S1 S2. Regular rate and rhythm. Lungs: Clear to auscultation. Abdomen: Soft, nontender, nondistended. Extremities: Normal skin color and turgor. Left lower extremity with edema. Palpable femoral and dorsalis pedis pulses. Neurological: No focal deficits. Alert and oriented 3. - Labs CBC & Chem 7: 09/26/20 07:13 09/26/20 07:13 Labs: Abnormal Lab Results - Last 24 Hours (Table) 09/25/20 09/26/20 09/26/20 Range/Units 08:32 07:13 07:13 WBC 11.1 H (3.8-10.6) k/uL Neutrophils # 8.2 H (1.3-7.7) k/uL Fibrinogen 711 H (200-500) mg/dL Creatinine 0.49 L (0.52-1.04) mg/dL Microbiology - Last 24 Hours (Table) 09/23/20 21:25 Blood Culture - Preliminary Blood No Growth after 48 hours Assessment and Plan Assessment: 1. Left lower extremity DVT 2. Patient is status post left lower extremity venogram and thrombolysis 3. History of hypertension Plan: Patient tolerating Eliquis. Patient may be discharged home from a vascular surgical standpoint and can follow-up in 2 weeks. Discuss with patient to elevate left lower extremity and apply compression stocking at home. The impression and plan of care has been dictated as directed. Dr. Gore I performed a history and examination of this patient, discussed the same with the dictator. I agree with the dictator's note ,documented as a scribe. Any additional findings or plans will be noted.
== END 2020-09-26 14:31 | disposition home or self-care (01) | DRG 301 ==
LOC: EC 15:54 → 5NMEDONC 18:12 → 2SICU 09-24 14:20 → OBSVTOIN 09-24 15:20 → 3SCARD 09-25 21:45
PROVIDERS: ADMIT Internal Medicine; ATTEND Internal Medicine
DX: I82.412 Acute embolism and thrombosis of left femoral vein (principal); Z87.891 Personal history of nicotine dependence; I10 Essential (primary) hypertension; Z86.16 Personal history of COVID-19; E66.9 Obesity, unspecified; Z68.33 Body mass index [BMI] 33.0-33.9, adult; Z86.718 Personal history of other venous thrombosis and embolism; D72.829 Elevated white blood cell count, unspecified
CPT/HCPCS: 36415; 80048; 81001; 83605; 85025; 85384; 85610; 85730; 87040; 99291